=== PATIENT | female | born 1990 | race Two or more races ===

== ENCOUNTER 2025-04-08 13:13 | Inpatient (IN) | payer BC ==
[~2025-04-08] VITALS: Ht 165.1 cm; Wt 75.1 kg
[2025-04-08 13:15] VITALS: BP 145/80; PULSE 80; RESP 22; TEMP 98.5; O2SAT 98
--- NOTE | 2025-04-08 13:52 | ED.PDOC ---
SOB-HPI HPI Comments 35-year-old female presents to the ED with a chief complaint of cough onset 1 week. Patient states she was diagnosed with pneumonia last week, was prescribed z-pac, prednisone, albuterol, finished antibiotic course, did not notice improvement of symptoms. Patient states she noticed she has been experiencing shortness of breath with exertion as well as cough worsening. O2 saturation upon ED arrival was 98% on RA. Denies chest pain, dizziness, headache, fever, chills, nausea, vomiting, diarrhea, dysuria, hematuria, sore throat. No other symptoms or modifying factors present at this time. 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 PROCUREMENT SPECIALIST History: No Pertinent SENIOR PROCUREMENT SPECIALIST History Family History Family History: Reviewed,noncontributory to illness, No family hx of Cancer, No family hx of DM, No family hx of Heart fabiano, No family hx of HTN, No family hx ofKidney fabiano, No family hx of Liver fabiano, No family hx of Lung fabiano, No family hx of Stroke Social History Smoker: Non-Smoker Alcohol: Denies ETOH Use Drugs: Denies Drug Use Lives In: Home Constitutional: denies: chills, diaphoresis, fatigue, fever, malaise, sweats, weakness, others EENTM: denies: blurred vision, double vision, ear bleeding, ear discharge, ear drainage, ear pain, ear ringing, eye pain, eye redness, hearing loss, mouth pain, mouth swelling, nasal discharge, nose bleeding, nose congestion, nose pain, photophobia, tearing, throat pain, throat swelling, voice changes, others Respiratory: reports: cough, shortness of breath; denies: hemoptysis, orthopnea, SOB at rest, SOB with excertion, stridor, wheezing, others Cardiovascular: denies: chest pain, dizzy spells, diaphoresis, Dyspnea on exertion, edema, irregular heart beat, left arm pain, lightheadedness, palpitations, PND, syncope, others Gastrointestinal: denies: abdomen distended, abdominal pain, blood streaked bowels, constipated, diarrhea, dysphagia, difficulty swallowing, hematemesis, melena, nausea, poor appetite, poor fluid intake, rectal bleeding, rectal pain, vomiting, others Genitourinary: denies: abnormal vagina bleeding, burning, dyspareunia, dysuria, flank pain, frequency, hematuria, incontinence, pain, , vagina discharge, urgency, others Neurological: denies: dizziness, fainting, headache, left sided numbness, left sided weakness, numbness, paresthesia, pre-existing deficit, right sided numbness, right sided weakness, seizure, speech problems, tingling, tremors, weakness, others Musculoskeletal: denies: back pain, gout, joint pain, joint swelling, muscle pain, muscle stiffness, neck pain, others Integumetry: denies: bruises, change in color, change in hair/nails, dryness, laceration, lesions, lumps, rash, wounds, others Allergic/Immunocompromised: denies: Difficulty Healing, Frequent Infections, Hives, Itching, others Hematologic/Lymphatic: denies: anemia, blood clots, easy bleeding, easy bruising, swollen glands, others Endocrine: denies: excessive hunger, excessive sweating, excessive thirst, excessive urination, flushing, intolerance to cold, intolerance to heat, unexplained weight gain, unexplained weight loss, others Psychiatric: denies: anxiety, bipolar disorder, depression, hopeless, panic dis order, schizophrenia, sleepless, suicidal, others All Other Systems: Reviewed and Negative Physical Exam General Appearance: Moderate Distress, Normal HEENT: Normal ENT Inspection, Pharynx Normal, TMs Normal Neck: Full Range of Motion, Non-Tender, Normal, Normal Inspection Respiratory: Accessory Muscle Use, Chest Non-Tender, Respiratory Distress, Wheezing Cardiovascular: No Edema, No JVD, No Murmur, No Gallop, Normal Peripheral Pulses, Regular Rate/Rhythm Breast Exam: Deferred Gastrointestinal: No Organomegaly, Non Tender, No Pulsatile Mass, Normal Bowel Sounds, Soft Genitalia: Deferred Pelvic: Deferred Rectal: Deferred Extremities: No calf tenderness, Normal capillary refill, Normal inspection, Normal range of motion, Non-tender, No pedal edema Musculoskeletal : Apperance: Normal Neurologic: Alert, tubing machine operator II-XII nml as Tested, No Motor Deficits, Normal Affect, Normal Mood, No Sensory Deficits Cerebellar Function: Normal Reflexes: Normal Skin: Dry, Normal Color, Warm Peripheral Pulses: 3+ Radial (R), 3+ Radial (L) Lymphatic: No Adenopathy Was a procedure done? Was a procedure done?: No Differential Dx Differential Diagnosis: Anxiety, Asthma, Bronchitis X-Ray, Labs, Meds, VS Vital Signs Date Time Temp Pulse Resp B/P (MAP) Pulse Ox O2 Delivery O2 Flow Rate FiO2 04/08/25 13:15 98.5 80 22 145/80 98 98.5 Lab Test 04/08/25 14:06 Range/Units White Blood Count 9.0 4.4-10.8 10^3/uL Red Blood Count 4.60 4.0-5.20 10^6/uL Hemoglobin 14.6 12.2-16.2 g/dL Hematocrit 42.5 36.0-46.0 % Mean Corpuscular Volume 92.4 80.0-100.0 fL Mean Corpuscular Hemoglobin 31.8 28.0-32.0 pg Mean Corpuscular Hemoglobin Concent 34.4 32.0-36.0 g/dL Red Cell Distribution Width 13.0 11.8-14.3 % Platelet Count 337 140-450 10^3/uL Mean Platelet Volume 8.1 6.9-10.8 fL Neutrophils (%) (Auto) 85.0 H 37.0-80.0 % Lymphocytes (%) (Auto) 12.7 10.0-50.0 % Monocytes (%) (Auto) 1.9 0.0-12.0 % Eosinophils (%) (Auto) 0.1 0.0-7.0 % Basophils (%) (Auto) 0.3 0.0-2.0 % Neutrophils # (Auto) 7.7 1.6-8.6 10 ^3/uL Lymphocytes # (Auto) 1.1 0.4-5.4 10 ^3/uL Monocytes # (Auto) 0.2 0-1.3 10 ^3/uL Eosinophils # (Auto) 0 0-0.8 10 ^3/uL Basophils # (Auto) 0 0-0.2 10 ^3/uL Nucleated Red Blood Cells 0.2 % Sodium Level 142 136-145 mmol/L Potassium Level 4.3 3.5-5.1 mmol/L Chloride Level 107 98-107 mmol/L Carbon Dioxide Level 24 20-31 mmol/L Anion Gap 11 5-15 Blood Urea Nitrogen 14 9-23 mg/dL Creatinine 0.89 0.550-1.02 mg/dL Glomerular Filtration Rate Calc 86 >90 mL/min BUN/Creatinine Ratio 15.7 10.0-20.0 Serum Glucose 155 H 74-106 mg/dL Calcium Level 9.6 8.7-10.4 mg/dL Patient alert. Vitals stable. Complaining of shortness a breath. Ambulating. Unable to complete sentences. Using accessory muscles. She does have wheezing. Establish intravenous access. Was given steroid. Blood sugar elevated. Explained to the patient. Continue monitoring. Time of 1ST Reevaluation: 14:20 Reevaluation 1ST: Unchanged Patient Education/Counseling: Diagnosis, Treatment, Prognosis Family Education/Counseling: No Family Present SEPSIS Sepsis Screen Date sepsis recognized/suspect: Apr 08, 2025 Time Sepsis recognized/suspect: 1314 Recent Procedure: No On Antibiotic Therapy: No Respiratory Rate >20: Yes Heart Rate >90: No Temp<36 C (96.8 F) or >38.3 C: No SBP <90 or MAP <65 mmHG: No New Acute Mental Status Change: No Is the patient on CPAP, BIPAP,: No Physician Orders Chest Portable (04/08/25 13:27) Urinalysis (04/08/25 13:27) Azithromycin 500mg/250ml (Zithromax 500m (04/08/25 14:00) Vital Signs Date Time Temp Pulse Resp B/P (MAP) Pulse Ox O2 Delivery O2 Flow Rate FiO2 04/08/25 13:15 98.5 80 22 145/80 98 98.5 Laboratory Tests Test 04/08/25 14:06 White Blood Count 9.0 10^3/uL (4.4-10.8) Departure 1 Departure Time of Disposition: 15:09 Impression: Primary Impression: Acute respiratory distress Additional Impression: Pneumonitis Disposition: 09 ADMITTED INPATIENT Admit to: Med Surg Condition: Guarded Critical Care Note Critical Care Time?: Yes (90 min-critical care time only) Stability Stability form required: No Heart Score Heart Score: Heart Score Response (Comments) Value History N/A 0 EKG N/A 0 Age N/A 0 Risk Factors N/A 0 Troponin N/A 0 Total 0 I personally scribed for CARRIE,MARIBEL MD ([email or web address]) on 04/08/25 at 13:52. Electronically submitted by Lisa Parks ([email or web address]). MARIBEL BUTLER MD Apr 08, 2025 13:52
--- NOTE | 2025-04-08 13:56 | DVH ---
CHEST RADIOGRAPH Indication: cough Technique: Single frontal view of the chest was obtained COMPARISON: None FINDINGS: Lines and Tubes: None Lungs: Clear Pleura: No effusion. No pneumothorax. Cardiomediastinal contours: Unremarkable Bones: Unremarkable IMPRESSION: No acute disease.
[2025-04-08] MEDS ORDERED: methylPREDNISolone SOD SUCC 125 MG/2 ML VL IV ONE (14:00)
[2025-04-08] MEDS ORDERED: AZITHROMYCIN 500MG/250ML 250 ML IV ONE (14:00)
[2025-04-08 14:38] LABS: Hematocrit 42.5 % (36.0-46.0); Hemoglobin 14.6 g/dL (12.2-16.2); Mean Corpuscular Hemoglobin 31.8 pg (28.0-32.0); Mean Corpuscular Volume 92.4 fL (80.0-100.0); Nucleated Red Blood Cells % 0.2 %
[2025-04-08 14:47] LABS: Chloride 107 mmol/L (98-107); Potassium 4.3 mmol/L (3.5-5.1); Sodium 142 mmol/L (136-145)
[2025-04-08 14:48] LABS: Anion Gap 11 (5-15); Carbon Dioxide 24 mmol/L (20-31)
[2025-04-08 14:49] LABS: Calcium 9.6 mg/dL (8.7-10.4)
[2025-04-08 14:53] LABS: BUN/Creatinine Ratio 15.7 (10.0-20.0); Blood Urea Nitrogen 14 mg/dL (9-23)
[2025-04-08 14:58] LABS: Glucose 155 mg/dL (74-106)
[2025-04-08 16:26] LABS: Urine Protein, UAD 1+ (Negative)
[2025-04-08] MEDS ORDERED: ACETAMINOPHEN 325 MG TAB PO PRN (16:30)
[2025-04-08] MEDS ORDERED: SODIUM CHLORIDE 0.9% 1,000 ML IV SCH (16:30)
[2025-04-08] MEDS ORDERED: HYDROcodone-ACET 5/325MG TAB PO PRN (16:30)
--- NOTE | 2025-04-08 18:00 | DVHHP2 ---
History of Present Illness History of Present Illness A 35-year-old female with PMHx of diabetes presented with one week of persistent cough. She reports that she was evaluated by her PCP, Dr. Sanchez, who diagnosed her with pneumonia and prescribed azithromycin, prednisone, and albuterol. She has been using her breathing treatments as prescribed. Despite this, her symptoms have not improved. She continues to have a dry, nonproductive cough, associated chills, and significant malaise, but she denies fever, sputum production, dyspnea, chest pain, or other systemic symptoms. She denies recent sick contacts, travel, or exposure risks. On review of medications, she is on Rybelsus and insulin at home, but her A1c on admission is 5.9. Her ED workup showed a normal CBC, normal CMP, normal UA, and normal CXR without infiltrates. COVID, influenza, and MRSA screening were pending at the time of evaluation. Due to persistent symptoms despite outpatient therapy, she will be admitted for management of bronchitis versus early pneumonia. 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: No Pertinent RAILROAD AUDITOR History Social History Smoker: Non-Smoker Alcohol: Denies ETOH Use Drugs: Denies Drug Use Lives In: Home Review of Systems Allergies: Coded Allergies: Morphine (Verified Allergy, Unknown, 04/08/25) Medications Current Medications Medications Dose Ordered Sig/Chari Route Start Time Stop Time Status Last Admin Dose Admin Sodium Chloride 1,000 ml @ 60 mls/hr [id number] IV 04/08/25 16:30 Acetaminophen 650 mg Q6HP PRN PO 04/08/25 16:30 Acetaminophen/ Hydrocodone Bitart 1 tab Q4HP PRN PO 04/08/25 16:30 Ceftriaxone Sodium 50 ml @ 100 mls/hr DAILY@09 IV 04/09/25 09:00 Azithromycin 250 ml @ 125 mls/hr DAILY IV 04/09/25 10:00 Prednisone 40 mg DAILY PO 04/09/25 10:00 Exam Vital Signs Vital Signs Date Time Temp Pulse Resp B/P (MAP) Pulse Ox O2 Delivery O2 Flow Rate FiO2 04/08/25 13:15 98.5 80 22 145/80 98 98.5 Exam Patient is alert and oriented 3, in no acute distress. Vitals stable. HEENT: mucous membranes moist, no pharyngeal erythema. Neck supple. Lungs with mild scattered wheezes bilaterally, no crackles, no rhonchi; normal work of breathing on room air. Cardiovascular exam reveals RRR without murmurs. Abdomen soft, NT/ND, no guarding. Extremities warm, no edema. Neurological exam non-focal. Skin warm and dry without rash. Labs/Xrays Labs Test 04/08/25 15:58 04/08/25 14:06 Range/Units Urine Color Colorless Yellow Urine Clarity Clear Clear Urine pH 7.0 5.0-9.0 Urine Specific [place] 1.005 1.001-1.035 Urine Protein 1+ H Negative Urine Ketones Negative Negative Urine Blood Negative Negative /uL Urine Nitrite Negative Negative Urine Bilirubin Negative Negative Urine Urobilinogen Normal Negative mg/dL Urine Leukocyte Esterase Negative Negative /uL Urine RBC 1 0 - 4 /hpf Urine Microscopic WBC 1 0-5 /HPF Urine Squamous Epithelial Cells Few <5 /hpf Urine Bacteria Few H None Seen /hpf Urine Glucose Normal Normal mg/dL White Blood Count 9.0 4.4-10.8 10^3/uL Red Blood Count 4.60 4.0-5.20 10^6/uL Hemoglobin 14.6 12.2-16.2 g/dL Hematocrit 42.5 36.0-46.0 % Mean Corpuscular Volume 92.4 80.0-100.0 fL Mean Corpuscular Hemoglobin 31.8 28.0-32.0 pg Mean Corpuscular Hemoglobin Concent 34.4 32.0-36.0 g/dL Red Cell Distribution Width 13.0 11.8-14.3 % Platelet Count 337 140-450 10^3/uL Mean Platelet Volume 8.1 6.9-10.8 fL Neutrophils (%) (Auto) 85.0 H 37.0-80.0 % Lymphocytes (%) (Auto) 12.7 10.0-50.0 % Monocytes (%) (Auto) 1.9 0.0-12.0 % Eosinophils (%) (Auto) 0.1 0.0-7.0 % Basophils (%) (Auto) 0.3 0.0-2.0 % Neutrophils # (Auto) 7.7 1.6-8.6 10 ^3/uL Lymphocytes # (Auto) 1.1 0.4-5.4 10 ^3/uL Monocytes # (Auto) 0.2 0-1.3 10 ^3/uL Eosinophils # (Auto) 0 0-0.8 10 ^3/uL Basophils # (Auto) 0 0-0.2 10 ^3/uL Nucleated Red Blood Cells 0.2 % Sodium Level 142 136-145 mmol/L Potassium Level 4.3 3.5-5.1 mmol/L Chloride Level 107 98-107 mmol/L Carbon Dioxide Level 24 20-31 mmol/L Anion Gap 11 5-15 Blood Urea Nitrogen 14 9-23 mg/dL Creatinine 0.89 0.550-1.02 mg/dL Glomerular Filtration Rate Calc 86 >90 mL/min BUN/Creatinine Ratio 15.7 10.0-20.0 Serum Glucose 155 H 74-106 mg/dL Hemoglobin A1c 5.9 H <5.7 % A1C Calcium Level 9.6 8.7-10.4 mg/dL SEPSIS Sepsis Screen Date sepsis recognized/suspect: Apr 08, 2025 Time Sepsis recognized/suspect: 1314 Recent Procedure: No On Antibiotic Therapy: No Respiratory Rate >20: Yes Heart Rate >90: No Temp<36 C (96.8 F) or >38.3 C: No SBP <90 or MAP <65 mmHG: No New Acute Mental Status Change: No Is the patient on CPAP, BIPAP,: No Physician Orders Chest Portable (04/08/25 13:27) Admit (04/08/25 16:24) Code Status (04/08/25 16:24) Vital Signs .PER UNIT PROTOCOL (04/08/25 16:24) Review Orders With Adm. (04/08/25 16:24) [facility])Diabetes (04/08/25 Dinner) Sodium Chloride 0.9% (04/08/25 16:30) Acetaminophen Tablet (Tylenol Tablet) (04/08/25 16:30) Notify Md Of Changes From Base (04/08/25 16:24) Advance Directive (04/08/25 16:24) Patient Condition (04/08/25 16:24) Allergies (04/08/25 16:24) Hydrocodone-Acet 5/325mg Tab ([place] 5/32 (04/08/25 16:30) Drug Screen (04/08/25 16:24) Oxygen By Nasal Cannula (04/08/25 16:24) Stat Ekg For Chest Pain (04/08/25 16:24) Notify Of Changes From Base (04/08/25 16:24) Engine Pilot For 24 Hours (04/08/25 16:24) Emergency Dysrhythmia Protocol (04/08/25 16:24) Rhythm Strips Once Every Shift (04/08/25 16:24) Ceftriaxone 1gm/50ml (Rocephin) (04/09/25 09:00) Azithromycin 500mg/250ml (Zithromax 500m (04/09/25 10:00) Covid19 Antigen [place] (04/08/25 ) Rapid Influenza A&B (04/08/25 16:24) Mrsa Screen (04/08/25 16:24) Prednisone Tablet (04/09/25 10:00) Vital Signs Date Time Temp Pulse Resp B/P (MAP) Pulse Ox O2 Delivery O2 Flow Rate FiO2 04/08/25 13:15 98.5 80 22 145/80 98 98.5 Laboratory Tests Test 04/08/25 14:06 White Blood Count 9.0 10^3/uL (4.4-10.8) Assessment/Plan Assessment/Plan A 35-year-old female with PMHx of diabetes admitted for persistent cough refractory to outpatient management, with normal CXR and stable vitals. Respiratory Acute bronchitis vs early pneumonia: Patient has one week of dry cough with chills, unresponsive to azithromycin/prednisone/albuterol. CXR normal but cannot exclude early atypical pneumonia. Will continue ceftriaxone and azithromycin continue prednisone schedule breathing treatments obtain COVID, influenza, and MRSA swabs Endocrine Diabetes: A1c 5.9 suggests good control. Hold home insulin; manage with ISS Code status: Full code. Case discussed Dr Owens Plan discussed with: Patient, Other (rn) My Orders Orders - NOREEN CRUZ RESIDENT Procedure Category Date Status Time Admit ADMIT 04/08/25 Transmitted 16:24 Code Status CODE 04/08/25 Transmitted 16:24 Vital Signs SARAH 04/08/25 In Process 16:24 Review Orders With SARAH 04/08/25 In Process Adm. 16:24 Consistent DIET 04/08/25 Transmitted Carb(Ccho)Diabetes Dinner Sodium Chloride 0.9% PHA 04/08/25 In Process 16:30 Acetaminophen Tablet PHA 04/08/25 In Process (Tylenol Tablet) 16:30 Notify Of Changes SARAH 04/08/25 In Process From Base 16:24 Advance Directive SARAH 04/08/25 In Process 16:24 Patient Condition ORDERS 04/08/25 Transmitted 16:24 Allergies SARAH 04/08/25 In Process 16:24 Hydrocodone-Acet PHA 04/08/25 In Process 5/325mg Tab ([place] 16:30 Drug Screen LAB 04/08/25 Logged 16:24 Oxygen By Nasal RT 04/08/25 Transmitted Cannula 16:24 Stat Ekg For Chest [facility] 04/08/25 In Process Pain 16:24 Notify Md Of Changes [facility] 04/08/25 In Process From Base 16:24 Engine Pilot For [facility] 04/08/25 In Process 24 Hours 16:24 Emergency Dysrhythmia [facility] 04/08/25 In Process Protocol 16:24 Rhythm Strips Once [facility] 04/08/25 In Process Every Shift 16:24 Ceftriaxone 1gm/50ml PHA 04/09/25 In Process (Rocephin) 09:00 Azithromycin PHA 04/09/25 In Process 500mg/250ml 10:00 Covid19 Antigen [place] LAB 04/08/25 Logged Rapid Influenza A&B LAB 04/08/25 Logged 16:24 Mrsa Screen [facility] 04/08/25 Logged 16:24 Prednisone Tablet PHA 04/09/25 In Process 10:00 Date of Service: Apr 08, 2025 Billing Provider: NOREEN CRUZ Common Visit Codes: [id number] INP/OBS CARE (HIGH) NOREEN CRUZ RESIDENT Apr 08, 2025 18:00
[2025-04-08] MEDS ORDERED: IPRATROPIUM BROM 0.5 MG/2.5ML INH SOL NEB PRN (18:45)
[2025-04-08] MEDS ORDERED: DEXTROSE (50%) 50ML SYRG IV PRN (18:45)
[2025-04-08 21:45] LABS: Amphetamine Screen, Urine Neg (NEGATIVE)
[2025-04-08 21:46] LABS: Barbiturate Scree,Urine Neg (NEGATIVE); Benzodiazephine Screen, Urine Neg (NEGATIVE); Cannabinoid Screen, Urine Neg (NEGATIVE); Cocaine Screen, Urine Neg (NEGATIVE); Opiate Scree,Urine Neg (NEGATIVE); Phencyclidine Screen, Urine Neg (NEGATIVE)
[2025-04-08] MEDS ORDERED: ACCU-CHEK COMFORT CURVE STRIP VI SCH (22:00)
[2025-04-08] MEDS ORDERED: ALBUTEROL SULF 2.5 MG/0.5ML(0.5%) NEB SOLN NEB SCH (22:00)
[2025-04-08] MEDS ORDERED: InsuLIN REG 1unit/0.01ml Soln (100units/ml) SC SCH (22:00)
[2025-04-09] MEDS ORDERED: predniSONE 20 MG TAB PO SCH (10:00)
[2025-04-09] MEDS ORDERED: AZITHROMYCIN 500MG/250ML 250 ML IV SCH (10:00)
== END 2025-04-08 18:45 | disposition left against medical advice (07) | DRG 202 ==
LOC: ER 13:13 → OVERFLOW 16:24
PROVIDERS: ATTEND Emergency Medicine
DX: J20.9 Acute bronchitis, unspecified (principal); J18.9 Pneumonia, unspecified organism; E11.9 Type 2 diabetes mellitus without complications; J98.4 Other disorders of lung; Z53.29 Procedure and treatment not carried out because of patient's decision for other reasons; Z79.4 Long term (current) use of insulin; Z88.5 Allergy status to narcotic agent
CPT/HCPCS: 36415; 71045; 80048; 80307; 81001; 83036; 85025; 99291; 99292; G0378